=== PATIENT | female | born 1985 | race Caucasian/White ===

== ENCOUNTER 2025-02-11 14:56 | Outpatient (CLI) | payer OTHER, SELFPAY ==
--- OUTSIDE RECORDS SUMMARY | 2025-02-11 15:02 | XMS_ITS | Clinical Summary ---
Author Organization [facility] Address [address] [place] [address] Care Team Providers Care Monorail Hooker Name Role Phone Unavailable Primary Care Provider Unavailabl e Source Comments [facility],non-owned Affiliates and Associated Physician Practices is amultiple site organization consisting of ambulatory clinics and hospital sitesin [place], [place], [place] and [place]. This disclosure is being madepursuant to the Care Everywhere program and may not contain all information available regarding this patient. Last updated 18.[facility] [employer] Encounters Date Type Department Care Team Description 12/09/2024 Telephone [facility] [address] [place] [address] Bre Maurer Follow-up from Last 3 Months Social History Tobacco Use Types Packs/Day Years Used Date Smoking Tobacco: Never Assessed Comments Unknown Sex and Gender Information Value Date Recorded Sex Assigned at Not on file Legal Sex Female 8:28 AM CDT Gender Identity Not on file Sexual Orientation Not on file Plan of Treatment Health Maintenance Due Date Last Done Comments PAP SMEAR 1987 HIV SCREENING 2002 HEPATITIS C SCREENING 11/05/2005 DTAP/TDAP/TD VACCINES (1 - Tdap) 2006 HEPATITIS B VACCINE (1 of 3 - 19+ 3-dose series) 2006 COVID-19 VACCINE ( - 2023-2 5 season) 2024 DEPRESSION SCREENING 09/17/2024 INFLUENZA VACCINE (Season Ended) 2025 ZOSTER VACCINE (1 of 2) 2037 HIB VACCINE Aged Out No longer eligi ble based on patient's age to complete this topic HPV VACCINE Aged Out No longer eligi ble based on patient's age to complete this topic MENINGOCOCCAL (Group B) VACC INE SHARED DECISION-MAKING Aged Out No longer eligibl e based on patient's age to complete this topic MENINGOCOCCAL GROUPS A/C/Y/W VACCINE Aged Out No longer eligible b ased on patient's age to complete this topic PNEUMOCOCCAL VACCINE Aged Out No long er eligible based on patient's age to complete this topic [place] [address] [place] [id number]
--- OUTSIDE RECORDS SUMMARY | 2025-02-11 15:02 | XMS_ITS | Continuity of Care Document ---
Author Organization [facility] Address [address] [place] [address] Phone Care Team Providers Care Aerial Lineman Name Role Phone Blank OD, Geoff Unavailable Unavailable Advance Directives Directive Yes / No Effective Date File Name No Information Encounters Encounter Description Practice Location Reason(s) For Visit Diagnoses Date Provider Providers Copied on Encounter [facility] [place], [address], [place], [place], [id number], [place] tel:[phone] [facility] [place] No Information Sep-2 8-200 5 Blank OD Geoff. [address] [place] , [address], [place], [address], [place]. tel:[phone] Family History Family Member Type Diagnosis Age At Onset No Information Payers Payer name Insurance type Covered libertarian ID Authoriza tion(s) Medicaid [facility] [id number] Social History Type Description Quantity Date Captured [...]
--- OUTSIDE RECORDS SUMMARY | 2025-02-11 15:02 | XMS_ITS | Data Portability ---
Author Organization [place] [facility] [employer], Main Office Address [address] [place] [address] Care Team Providers Care Meringuer Name Role Phone ERICA WHITLOCK Primary Care Provider [phone] ERICA WHITLOCK Referring Provider [phone] VALENTIN HESS Orthopedic Surgeon SUSAN DENNIS Clinical Account Executive ELMA BAXTER Hydrodynamicist Assessment Encounter Date Assessment Date Assessment LastModified by Organization Details LastModified Time 10/06/2024 10/06/2024 HPI: 38 year old female presents today for evaluation of right ankle pain that has been ongoing since summer 2022 when she twisted her ankle. Reports pain as achy and currently rates it 7/10. Pain is aggravated with standing and walking for long periods. She has tried diclofenac with good relief. She did have a previous fracture of the right fifth and fourth metatarsal bone in 2022. No recent injury. Physical Exam: General: Normal appearance. No acute distress. BMI 56.2 Inspection: No evidence of swelling, erythema, bruising or deformity. Palpation: Nontender to palpation. ROM: Normal ROM. Gait: Normal gait. Motor: 5/5 strength. Sensation: Sensation intact. Imaging: Xray reviewed. 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 Assessment & Plan: PT for ankle arthritis Continue diclofenac as needed for pain. Follow Up: Discussed that if she fails PT the next step would be seeing a pharmaceutical worker for her ankle. She did mention knee pain and I told her we could see her back for knee pain. All questions were answered. Patient verbalized understanding of treatment plan [email or web address] Not available 10/07/2024 19:10:01 Plan of Treatment Reminders Order Date Submit Date Provider Last Modified By Organization Details Last Modified Time Details Appointments None recorded. Lab HbA1c (hemoglob in A1c), blood 2024 025 [facility], [address] [place], [address], 5 15:03:00 insulin, serum 2024 025 [facility] Out[facility], [address] [place], [address], 5 12:58:37 cortisol, serum or plasma 2024 025 [facility] Outpatient Lab, [address] [place], [address], 5 08:23:29 TSH + free T4, serum [email or web address] - Outpatient Lab, [address] [place], [address], 5 15:06:03 Referral podiatris t referral - eval for surgery RT ankle 2024 025 DORITA Castillo DPM, [address] [facility], [address], [place], [address], 5 04:17:26 physical therapist referral - Please contact pt to schedule apt for R ankle. Thanks 2024 025 [facility] [place], [address] [facility], [place], [address], 5 08:40:35 Procedures None recorded. Surgeries None recorded. Imaging XR, ankle, 3 or more view 2024 025 [facility] (Imaging), [address] [place], [address], 5 04:04:33 home sleep study - Please call patient to schedule. 2024 025 [email or web address] [facility], [address], [place], [address], 11:12:23 XR, ankle, 3 or more view 2024 025 [facility] [place], [address], [place], [address], 16:58:55 Medication Orders diclofena c 1 % topical gel 2024 025 [id number], [address], [place], [place], [id number], 12:06:13 Diflucan 150 mg tablet 2024 025 [id number], [address], [place], [place], [id number], 12:06:13 Patient TargetsNo targets recorded. Patient Instructions Encounter Date Encounter Id Patient Instructions Last Modified By Organization Details Last Modified Time 10/21/2024 [id number] Follow up in 1 month Obtain labs Tests: Complete sleep study Referral: Recommend: Tetanus vaccine [email or web address] Not available 10/21/2024 14:58:31 Reason for Referral Physical Therapist Referral for Pain of right ankle joint R ankle-arthritis Please contact pt to schedule apt for R ankle. Thanks Referring Physician: Brandi Lopez, Orthopedic Surgery, Encounter Date: 10/06/2024 Clinical Account Executive Referral for Pain in right foot eval for surgery RT ankle Referring Physician: Susan Dennis, Podiatry, Encounter Date: 11/26/2024 Results Created Date Observation Date Name Description Value Unit Range Abnormal Flag Note LastModifiedBy Organization Detail LastModifiedTime 10/06/19 25 XR, ankle , 3 or more view No observ ation record ed. opal [facility] [place] [address], [place], [address], 10/07/2024 16:58:53 Result Notes None recorded. Problems Name Problem SNOMED Code Status Onset Date Resolution Date Notes Provider Name and Address Organization Details Recorded Time Hoarse 58900605 Active 2022 Not Available [facility] 3 07:12:04 Pain of bilateral knee joints 53402770004 4104 Active 2022 Not Available [facility] 3 07:12:04 Menorrhag ia 841690294 Active 2022 Not Available [facility] 3 07:12:03 History of methamphe tamine abuse 43810213925 840264 Active 2022 Not Available [facility] 3 07:12:03 Asthma 049450799 Active 2022 Erica Whitlock APRN [address], [place] [address], [place], [address] , [employer] 4 12:14:27 Iron deficienc y 77171742 Active 2022 Erica Whitlock APRN [address], [place] [address], [place], [address] , [employer] 4 12:14:32 Vitamin D deficienc y 49538581 Active 2022 Erica Whitlock APRN [address], [place] [address], [place], [address] , [employer] 4 12:15:34 Leukocyto sis 189132337 Active 2022 Erica Whitlock APRN [address], [facility], [place], [address] , [employer] 5 09:35:46 Pain of left knee joint 38252325350 4107 Active 2022 Not Available [facility] 3 07:12:03 Morbid obesity 678093083 Active 2022 Erica Whitlock APRN [address], [address], [place], [address] , [employer] 5 09:35:35 Bilateral osteoarth ritis of knees 87927857953 9107 Active 2022 Not Available [facility] 3 07:12:03 Iron deficienc y anemia 24958529 Active 2022 Erica Whitlock APRN [address], [address], [place], [address] , [employer] 4 08:06:43 Obesity 226458312 Completed 202210/21/2024 Erica Whitlock APRN [address], [address], [place], [address] , [employer] 5 09:35:51 Repetitiv e self-exco riation 899727791 Active 2022 Erica Whitlock APRN [address], [address], [place], [address] , [employer] 4 08:06:57 Nicotine dependenc e 89154762 Active 2022 Erica Whitlock APRN [address], [address], [place], [address] , [employer] 4 12:14:37 Pain of right ankle joint 03136088799 156120 Active 2022 Not Available [facility] 3 07:12:03 Closed fracture of fifth metatarsa l bone 48781560 Active 2022 Not Available [facility] 3 07:12:04 Closed fracture of fourth metatarsa l bone 44490141 Active 2022 Not Available [facility] 3 07:12:03 Closed fracture of third metatarsa l bone of right foot 38767450076 674875 Active 2022 Not Available [facility] 3 07:12:03 Pain in left foot 80741325860 9107 Active 2023 Shelton Castillo DPM [address], [address], [place], [address] , [employer] [facility] [employer] [facility] [employer] [facility] 4 15:43:32 Contusion of toe 08254920 Active 2023 Shelton Castillo DPM [address], [address], [place], [address] , [place] [facility] 4 15:43:43 Numbness of foot 874379925 Active 2023 Erica Whitlock APRN [address], [address], [place], [address] , [employer] [facility] 4 12:27:32 Gastroeso phageal reflux disease without esophagit is 524893733 Active 2023 Erica Whitlock APRN [address], [address], [place], [address] , [facility] - [facility] [employer] [facility] 4 08:06:37 Bilateral ankle joint pain 74555457322 342530 Active 2023 Kelly Daniels CNA null, [place] [facility] [employer] [facility] 4 12:26:07 Closed fracture of fifth metatarsa l bone of left foot 12256138061 931335 Active 2023 BORA Bradley [address], [address], [place], [address] , [facility] 4 13:06:19 Right Achilles tendiniti s 40386705947 9102 Active 2023 BORA Bradley [address], [address], [place], [address] , [facility] - [facility] 4 15:46:16 Osteochon dral defect of talus 650344412 Active 2023 Susan Dennis DPM [address], [address], [place], [address] , [place] [facility] 4 09:18:02 Arthritis 4622539 Active 2023 Erica Whitlock APRN [address], [address], [place], [address] , [place] [facility] [employer] [facility] [employer] 4 08:06:33 Prediabet es 535287052 Active 2023 Erica Whitlock APRN [address], [address], [place], [address] , [place] [facility] [employer] [facility] [employer] 4 14:46:07 Arthritis of right ankle 97561714798 30682 Active 2024 Brandi Lopez PA-C [address], [address], [place], [address] , [place] [facility] [employer] [facility] [employer] 5 16:59:19 Abnormal weight gain 804147038 Active 2024 Erica Whitlock APRN [address], [address], [place], [address] , [employer] 5 14:52:59 Snoring 30725574 Active 2024 Erica Whitlock APRN [address], [address], [place], [address] , [employer] [facility] [facility] 5 14:56:04 Sleep apnea 63859893 Active 2024 Erica Whitlock APRN [address], [address], [place], [address] , [employer] [facility] [employer] 5 14:58:43 Insulin resistanc e 786890243 Active 2024 Erica Whitlock APRN [address], [address], [place], [address] , [facility] - [facility] [employer] [facility] [employer] 5 14:01:50 Onychomyc osis 801722826 Active 2024 MIMI Xiong, [place] [facility] 5 15:19:01 Pain in right foot 56639614127 9107 Active 2024 Susan Dennis DPM [address], [address], [place], [address] , [facility] [employer] [facility] [employer] 09:08:19 Bone spur of right ankle 42165261585 9109 Active 2024 MIMI Xiong [employer] [facility] [employer] [facility] 15:39:34 Problem Notes None recorded. Procedures Surgical History Date Name Laterality Status Provider Name and Address Organization Details Recorded Time 11/12/19 25 Corticosteroid Injection completed Susan Dennis DPM [address], [employer] [address], [place], [address], [employer] 11/13/2024 09:08:13 07/07/20 24 Cortisone Injection Ankle-Right completed Susan Dennis DPM [address], [employer], [place], [address], [employer] 07/08/2024 09:18:31 04/03/20 23 Ortho - Cortisone Injection completed Arnulfo Ramsey MD [address], [place], [place], [address], [employer] 04/03/2023 10:40:17 02/07/20 23 Ortho - Cortisone Injection completed Arnulfo Ramsey MD [address], [employer] [address], [place], [address], [employer] [facility] [employer] 02/06/2023 10:47:09 Adenoid Surgery completed MIMI Allen [employer] [facility] [employer] 02/06/2023 10:20:45 loop electrosurgical excision procedure completed Karie Lyles [employer] [facility] [employer] 05/07/2023 16:21:09 Imaging Results None recorded. Procedure Notes None recorded. Medical Equipment None Reported. Allergies No known drug allergies Medications Name Sig Start Date Stop Date Status Note LastModified by Organization Details LastModified Time prednisone 10 mg tablet 10/02 completed Not Available Not Available Not Available fluconazole 150 mg tablet TAKE 1 TABLET BY MOUTH ONCE WEEKLY active Not Available Not Available No t Available Nystop 100,000 unit/gram topical powder APPLY EXTERNALL Y TO THE AFFECTED AREA TWICE DAILY 01/09 completed Not Available Not Available Not Available meloxicam 15 mg tablet TAKE 1 TABLET BY MOUTH EVERY DAY NEEDED 05/07 completed Not Available Not Available Not Available sulfamethox azole 800 mg-trimetho prim 160 mg tablet TAKE 1 TABLET BY MOUTH EVERY 12 HOURS 05/07 completed Not Available Not Available Not Available tramadol 50 mg tablet TAKE 1 TABLET BY MOUTH EVERY 8 HOURS NEEDED 10/06 completed Not Available Not Available Not Available prednisone 10 mg tablets in a dose pack Take 1 tab by mouth, 3 times a day for 3 daysTake 1 tab by mouth 2 times a day for 2 daysTake 1 tab by mouth once a day for 1 day 06/28 completed Not Available Not Available Not Available Kenalog 10 mg/mL suspension for injection Take 40 mg by injection route. 05/07 completed [facility]: 0003- 0494- 20 Not Available Not Available Not Available ferrous sulfate 325 mg (65 mg iron) tablet Take 1 tablet every day by oral route. 03/10 completed Not Available Not Available Not Available omeprazole 20 mg capsule,del ayed release TAKE ONE CAPSULE BY MOUTH DAILY AT DINNER active Not Available Not Available No t Available diclofenac sodium 75 mg tablet,michele yed release TAKE 1 TABLET BY MOUTH TWICE DAILY active Not Available Not Available No t Available ergocalcife rol (vitamin D2) 1,250 mcg (50,000 unit) capsule TAKE 1 CAPSULE BY MOUTH EVERY WEEK active Not Available Not Available No t Available methylpredn isolone 4 mg tablets in a dose pack FOLLOW PACKAGE DIRECTION S 01/25 completed Not Available Not Available Not Available albuterol sulfate HFA 90 mcg/actuati on aerosol inhaler INHALE 2 PUFFS BY MOUTH EVERY 4 HOURS NEEDED active Not Available Not Available No t Available metformin ER 500 mg tablet,exte nded release 24 hr TAKE 1 TABLET BY MOUTH EVERY DAY DIRECTED active Not Available Not Available No t Available amoxicillin 875 mg-potassiu m clavulanate 125 mg tablet TAKE 1 TABLET BY MOUTH TWICE DAILY 01/25 completed Not Available Not Available Not Available omeprazole 20 mg tablet,michele yed release Take 1 tablet every day by oral route. 03/10 completed Not Available Not Available Not Available diclofenac 1 % topical gel APPLY 2 GRAMS TO THE AFFECTED AREA(S) BY TOPICAL ROUTE 4 TIMES PER DAY 2024 active Not Available Not Available Not Avai lable ropivacaine (PF) 5 mg/mL (0.5 %) injection solution Take 40 mg by injection route. 05/07 completed [facility] [phone] -064- 01 Not Available Not Available Not Available Vitals Date Recorded Body height Body mass index (BMI) Body weight Provider Name and Address Organization Details Last Updated DateTime 10/06/2024 157.48 cm 56.2 kg/m2 790507.86 g Raisa Mccarty [facility] [employer] [facility] [employer] 10/06/2024 12:38:05 Date Recorded Body height Body mass index (BMI) Body weight Body temperature Heart rate Oxygen saturation Oxygen saturation in Arterial blood by Pulse oximetry Systolic blood pressure Diastolic blood pressure Provider Name and Address Organization Details Last Updated DateTime 157.48 cm 61.8 kg/m2 590798. 22 g 97.4 [degF] 89 /min 97 % 97 % 126 mm[Hg] 78 mm[Hg] Bri Song MA [facility] [employer] [facility] 14:45:04 Date Recorded Body height Body mass index (BMI) Body weight Oxygen saturation Oxygen saturation in Arterial blood by Pulse oximetry Body temperature Heart rate Provider Name and Address Organization Details Last Updated DateTime 157.48 cm 61.5 kg/m2 263146. 04 g 98 % 98 % 97.9 [degF] 86 /min Jesse Carroll [facility] [employer] [facility] [employer] 14:59:06 Date Recorded Body height Provider Name an d Address Organization Details Last Updated DateTime 11/24/2024 157.48 cm Jesse Carroll Oeflia [employer] [facility] [employer] 11/24/2024 16:11:25 Date Recorded Body height Body mass index (BMI) Body weight Oxygen saturation Oxygen saturation in Arterial blood by Pulse oximetry Body temperature Heart rate Provider Name and Address Organization Details Last Updated DateTime 157.48 cm 61.5 kg/m2 609514. 04 g 96 % 96 % 98.2 [degF] 80 /min Jesse Carroll Ofelia [employer] [facility] [employer] 15:26:32 Social History Question Answer Notes LastModified by Organization Details LastModified Time Tobacco Smoking Status Current Every Day Smoker Connie Collier, KASEY hines, [place] [facility] [place] [employer] 01/25/2023 11:07:44 If You Are , What Was Your Level Of Alcohol Consumption Prior To ? None Information not available 05/07/2023 What Is Your Level Of Caffeine Consumption? Heavy 3 Redbulls Daily Information not available 01/25/2023 In The 14 Days Before Symptom Onset, Have You Had Close Contact With A Laboratory-conf irmed COVID-19 While That Case Was Ill? No Information not available 01/25/2023 In The 14 Days Before Symptom Onset, Have You Had Close Contact With A Person Who Is Under Investigation For COVID-19 While That Person Was Ill? No Information not available 01/25/2023 What Type Of Diet Are You Following? REGULAR High Protein Information not available 10/21/2024 What Is The Highest Grade Or Level Of School You Have Completed Or The Highest Degree You Have Received? [id number] Information not available 01/25/2023 Have There Been Any Changes To Your Family Or Social Situation? No Information not available 01/25/2023 What Is The Fluoride Status Of Your Home? Unknown Information not available 01/25/2023 Do You Use Insect Repellent Routinely? Yes Information not available 01/25/2023 Where Do You Live? SingleLevelHouse Information not available 01/25/2023 Are You Following A Low Salt Diet? No Information not available 10/21/2024 What Was The Date Of Your Most Recent Tobacco Screening? 10/21/2024 Information not available 10/21/2024 Do You Have Any Pets? Yes Information not available 01/25/2023 What Is Your Relationship Status? Single Information not available 01/25/2023 Do You Use Your Seat Belt Or Car Seat Routinely? Yes Information not available 01/10/2024 Do You Have Smoke And Carbon Monoxide Detectors In Your Home? Yes Information not available 01/25/2023 At What Age Did You Start Smoking Tobacco? 19 Information not available 05/07/2023 Are You Passively Exposed To Smoke? Yes Information not available 01/25/2023 Are There Any Smokers In Your House? Yes Information not available 01/25/2023 How Much Tobacco Do You Smoke? 0.5 PPD Information not available 01/25/2023 Do You Use Sunscreen Routinely? No Information not available 01/25/2023 Has Tobacco Cessation Counseling Been Provided? No Information not available 05/07/2023 Have You Recently Traveled Abroad? No Information not available 01/25/2023 Have You Used IV Drugs? No Information not available 05/07/2023 Do You Have Any Dietary Restrictions? Yes Lactose Intolerant Information not available 10/21/2024 Sex: Unknown Functional Status Question Answer Note LastModified by Organizat ion Details LastModified Time Do you use any illicit or recreational drugs? Yes cannabis. former use of methphetamines Information not available 05/07/2023 Do you or have you ever used any other forms of tobacco or nicotine? No Information not available 01/25/2023 What is your level of alcohol consumption? None Information not available 05/07/2023 Are you currently employed? Yes Information not available 01/25/2023 What is your exercise level? Moderate Information not available 01/25/2023 Mental Status Question Answer Note LastModified by Organization D etails LastModified Time Do you feel stressed (tense, restless, nervous, or anxious, or unable to sleep at night)? [id number] Information not available 01/10/2024 Family History Relationship Description Onset Age of this Age Resolved Age Notes LastModified by Organization Details LastModified Time Father Hypertensive disorder Not available 2022 11:06:37 Father Diabetes mellitus Not available 2022 11:06:45 Father Arthritis Not availa ble 10/21/2024 14:37:42 Father Heart disease Not available 08/21/ 2023 16:20:17 Mother Malignant tumor of breast [email or web address] Not available 10/21 14:37:42 Mother Arthritis [email or web address] Not availa ble 10/21/2024 14:37:42 Brother Diabetes mellitus [email or web address] Not available 2022 16:19:25 Medical History Condition Response ARTHRITIS Y HEADACHES/MIGRAINES Y ANXIETY DISORDER Y ANEMIA/BLOOD DISORDER Y Gynecological History Statement/Question Response How many live births 0 Date of Last Pap Current Control Method Abstinence Date of LMP 10/06/2024 Sexually Active? N Obstetrics History GPAL:G 0 P 0 0 0 0 Type Value Multiple Births 0 Full Term 0 Induced 0 Spontaneous 0 Premature 0 Living 0 Ectopics 0 Total 0 Past Encounters Encounter ID Performer Location Encounter Start Date Encounter Closed Date Diagnosis/Indication Diagnosis SNOMED-CT Code Diagnosis ICD10 Code Diagnosis Note [id number] Lindsay bradford MD [facility] [place] [address] [facility] [address] [place] [address] 01/25/2023 10:55:28 01/25/2023 11:41:40 Hoarse 69393809 R49.0 Get appointmen t with ENT ER precaution s if any difficulty swallowing or difficulty breathing prior to appointmen t Pain of bi lateral knee joints 6890677276 84970 M25.561 M25.562 Get x-ray Get appointmen t with Ortho Menorrhagia 977356662 N9 2.0 Check labs Get appointmen t with rn obgyn Screening for disorder 568680927 Z13.9 History of methamphetamine abuse 6976199906 8022918 F15.21 Family his tory of breast cancer 358015009 Z80.3 We discussed starting early with baseline screenings due to her family history, she agrees Asthma 140956571 J45.90 9 On p.r.n. albuterol [id number] Arnulfo Ramsey MD [facility] [address] [place] [address] 02/06/2023 10:00:22 02/06/2023 10:46:45 Pain of bilateral knee joints 4951203282 65883 M25.561 M25.562 Morbid obesity 502371821 E66.01 Bilateral osteoarthritis of knees 2570269321 64568 M17.0 [id number] Lindsay bradford MD [facility] [address] [facility] [address] [place] [address] 02/26/2023 11:47:17 02/26/2023 12:17:18 Hoarse 84794964 R49.0 now following ENT- Dr. Nice, had laryngosco pyhe feels this is due to acid reflux, has her on omeprazole Pain of bi lateral knee joints 2521531872 56353 M25.561 M25.562 following ortho- Dr. 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 albuterol Vitamin D deficiency 347 32000 E55.9 On supplement Iron defic iency anemia 43284360 D50.9 On supplement Leukocytosis 112735210 D 72.829 Repeat CBC Adult heal th examination 462788062 Z00.01 Depression screening 171 706960 Z13.31 Obesity 282336686 E66.9 recommend healthy, well balanced mealsfocus on lean meats, fresh vegetables , fresh fruits, whole grainsredu ce fast/proce ssed foods or eating out to no more than 1-2 times per weekaim to get 30 min of exercise most days of the week- walking is a great choicealso recommend resistance training 2-3 times per week Repetitive self-excoriation 067146008 F42.4 recommend she wear long sleeves, keep nails cut shortfirst aid discussed- wash with gentle soap and apply TAB ointmentca ll if any s/s infection Nicotine dependence 5629 4008 F17.200 1 min spent with patient discussing risks, cessation options. Patient encouraged to quit. [id number] Arnulfo Ramsey MD [facility] [address] [place] [address] 03/06/2023 10:00:01 03/06/2023 11:18:14 Pain of bilateral knee joints 1972361627 93779 M25.561 M25.562 Bilateral osteoarthritis of knees 4312634939 16376 M17.0 Morbid obesity 214753208 E66.01 [id number] Arnulfo Ramsey MD [facility] [place] [address] [place], [place] [address] 04/03/2023 10:12:15 04/03/2023 10:51:08 Bilateral osteoarthritis of knees [id number] 77083 M17.0 Morbid obesity 528147782 E66.01 [id number] Shelton Castillo DPM [facility] Pod[facility] [place] [address] [place] [address] 05/07/2023 16:04:09 05/14/2023 11:52:07 Pain of right ankle joint 3963989327 6504698 M25.571 x-rays negative for acute injury- residual posttrauma tic findings with small ossicles of the medial and lateral ankle with intact ankle mortise Closed fra cture of fifth metatarsal bone 75041276 S92.354A dispense postop shoeminima l weight-lora ringrice therapyno strenuous activities [facility] for repeat x-ray Closed fra cture of fourth metatarsal bone 96691050 S92.344A as above Closed fra cture of third metatarsal bone of right foot 8456197822 0035434 S92.334A as above [id number] Lindsay bradford MD [facility] Internal Med [facility] [place] [address] [facility], [facility] [place] 15 [place] [address] 06/04/2023 12:00:14 06/04/2023 12:23:54 Hoarse [id number] R49.0 now following ENT- Dr. Nice, had laryngosco pyhe feels this is due to acid reflux, has her on omeprazole Pain of bi lateral knee joints 7177044180 78092 M25.561 M25.562 following ortho- Dr. Ramsey Menorrhagia 246238134 N9 2.0 now following [employer]- Dr. Ayala iron supplement History of methamphetamine abuse 8214616329 1953899 F15.21 continues to remain sober per her reportUDS negative for methamphet amines on 01/2023 Family his tory of breast cancer 890675981 Z80.3 We discussed starting early with baseline screenings due to her family historyhas mammogram order- encouraged her to schedule Asthma 198784191 J45.90 9 On p.r.n. albuterol Vitamin D deficiency 347 32753 E55.9 On supplement Iron defic iency anemia 52121296 D50.9 On supplement Leukocytosis 406676444 D 72.829 Repeat CBC Obesity 958150748 E66.9 recommend healthy, well balanced mealsfocus on lean meats, fresh vegetables , fresh fruits, whole grainsredu ce fast/proce ssed foods or eating out to no more than 1-2 times per weekaim to get 30 min of exercise most days of the week- walking is a great choicealso recommend resistance training 2-3 times per week Repetitive self-excoriation 091273409 F42.4 recommend she wear long sleeves, keep nails cut shortfirst aid discussed- wash with gentle soap and apply TAB ointmentca ll if any s/s infection Nicotine dependence 5629 4008 F17.200 1 min spent with patient discussing risks, cessation options. Patient encouraged to quit. Pain of ri ght ankle joint 5436742838 1074323 M25.571 following podiatry- Dr. Franny barnett missed her last apptencour aged her to call and reschedule [id number] Shelton Castillo DPM [facility] [place] [address] [place] [address] 07/23/2023 14:49:40 07/23/2023 15:40:00 Closed fracture of fifth metatarsal bone 30158772 S92.354A Not wearing postop shoeminima l weight-lora ringrice therapyno strenuous activities [facility] for repeat x-ray Closed fra cture of fourth metatarsal bone 23236730 S92.344A as above Closed fra cture of third metatarsal bone of right foot 2846552558 6632091 S92.334A as above [id number] Shelton Castillo DPM [facility] Podiatry [place] [address] [facility] [address] [place] [address] 12/11/2023 15:27:39 12/11/2023 16:26:34 Pain in left foot 3216850999 43204 M79.672 X-rays personally reviewed negative for acute injuryrice therapyrec ommend supportive shoe gear such as new balancefol low-up as needed Contusion of toe 6747847 0 S90.122A as above [id number] Lindsay bradford MD [facility] Internal Med [place] [address] [facility], [place] [address] [place] [address] 01/10/2024 12:10:36 01/10/2024 12:44:52 Asthma 688067955 J45.909 Iron deficiency 52226191 E61.1 Vitamin D deficiency 347 52930 E55.9 Pain in left foot 388382 5088 43059 M79.672 Gastroesop hageal reflux disease without esophagitis 346475258 K21.9 [id number] Obed Nguyen MD [facility] [place] [address] [place] [address] 03/10/2024 12:00:09 03/10/2024 15:42:18 Pain in left foot 4816538843 57218 M79.672 Bilateral ankle joint pain 6857792533 6844730 M25.571 M25.572 Closed fra cture of fifth metatarsal bone of left foot 4336060540 2287257 S92.352D [id number] Obed Nguyen MD [facility] [place] [address] [place] [address] 04/08/2024 14:46:49 04/08/2024 15:57:54 Closed fracture of fifth metatarsal bone of left foot 0990609848 2840898 S92.352D Bilateral ankle joint pain 1172532249 4218765 M25.571 M25.572 Pain in left foot 979513 5782 93486 M79.672 Right Achi lles tendinitis 0730864579 68247 M76.61 [id number] Lindsay bradford MD [facility] Internal Med [facility] [place] [address] [facility], [address] [address] 07/10/2024 14:05:55 07/10/2024 14:55:33 Hyperlipidemia screening 289150084 Z13.220 Screening for disorder 983642901 Z13.9 Hepatitis C screening 41 7176212 Z11.59 Asthma 486576926 J45.90 9 Obesity 415599355 E66.9 [id number] [facility] [address] [address] 07/07/2024 15:12:23 07/08/2024 09:51:53 Osteochondral defect of talus 050663579 M21.6X9 Arthritis 0972186 M19.90 [id number] [facility] [address] [place] [address] 08/26/2024 15:16:57 08/26/2024 15:58:55 Pain of right ankle joint 8131169957 0700680 M25.880 [id number] Obed Nguyen MD [facility] [address] 10/06/2024 12:06:06 10/06/2024 13:06:20 Pain of right ankle joint 9701129788 3612751 M25.571 Arthritis of right ankle 1927845495 577430 M13.693 [id number] Lindsay bradford MD [facility] Internal Med [facility] [place] [address] [address] 10/21/2024 14:37:01 10/21/2024 15:06:14 Abnormal weight gain 570395596 R63.5 Sleep apnea 49600668 G47 .30 [id number] Susan [facility] [address] [address] 11/12/2024 14:50:20 11/13/2024 10:51:19 Onychomycosis 694763062 B35.1 Pain of ri ght ankle joint 9212765588 4010359 M25.571 Pain in right foot 73585 48193 21479 M79.671 Osteochond ral defect of talus 532266657 M21.6X9 [id number] Susan Dennis DPM [facility] [place] [address] [address] 11/24/2024 16:02:28 12/10/2024 04:08:35 Osteochondral defect of talus 294725646 M21.6X9 [id number] Susan Dennis DPM [facility] Pod[facility] [address] [address] 11/26/2024 15:18:12 12/08/2024 10:58:18 Bone spur of right ankle 7277614381 56948 M25.771 Pain in right foot 40260 54761 27386 M79.671 Arthritis of right ankle 3221792186 111338 M13.871 Health Concerns Section Related Observation LastModified by Organization Detai ls LastModified Time None Recorded Concern Status LastModified by Organization Details LastModified Time None Recorded Advance Directives Directive None Recorded Payers Encounter Date Sequence Insurance Name Policy Number Policy Yo Covered Member ID Yo Member ID Guarantor Name 10/06/2024 1 [employer] (MEDICAID HM) [id number] Mirlande Mathenia [id number] Mirlande Mathenia 10/21/2024 1 [employer] [place] (MEDICAID HMO) [id number] Mirlande Mathenia [id number] Mirlande Mathenia 11/12/2024 1 [employer] [place] (MEDICAID HMO) [id number] Mirlande Mathenia [id number] Mirlande Mathenia 11/24/2024 1 [employer] [place] (MEDICAID HMO) [id number] 0003 Mirlande Mathenia [id number] Mirlnade Mathenia 11/26/2024 1 [employer] (MEDICAID HMO) [id number] 0003 Mirlande Mathenia [id number] Mirlande Mathenia Notes Date Note Type Note Provider Name and Address Organization Details Recorded Time 10/21/2024 text/html Mirlande presents today for 4 month follow up. 07/10/2024andreasroddy presents today for 6 month follow up. She states that she is seeing podiatry for her feet as she has a fracture of her left metatarsal and right heel spir. She is very upset and tearful due to her weight gain. She has gained 20 pounds since her last visit. In discussion, she is walking about 5,000 steps per day and eating less than 900 calories. 01/10/2024andreasroddy presents today to establish care. She states that she has not been to a PCP in a long while. She states that she is having foot pain and is in need of podiatry. She states that she needs labs and medication refills. Erica Whitlock APRN [address], [place], [address], [employer] 10/22/2024 11:03:19 11/12/2024 text/html Pt c/o painful ankle, Rt, previously injected, rendered great relief; pt requests another injection this date. Susan Dennis DPM [address], [employer] [address], [place], [address], [employer] 11/13/2024 09:08:38 11/24/2024 text/html Pt RTC for cont c/o painful arthritic ankle, Lt Susan Dennis DPM [address], [place], [address], [employer] 11/26/2024 08:50:31 11/26/2024 text/html Evaluated xrays this date. Osteophyte Rt ankle, painful. Susan Dennis DPM [address], [place], [address], [employer] 11/27/2024 08:39:48 OBGyn Episode No OBEpisode recorded.
[2025-02-11 16:06] LABS: Beta HCG Quantitative < 2.39 mIU/ML
== END 2025-02-11 14:57 | disposition home or self-care (01) ==
LOC: ANHLAB 14:58
PROVIDERS: PCP Family Medicine; Visit Provider Obstetrics & Gynecology
DX: N92.0 Excessive and frequent menstruation with regular cycle (principal)
CPT/HCPCS: 36415; 84702

== ENCOUNTER 2025-07-07 16:01 | Outpatient (CLI) | payer OTHER, SELFPAY ==
--- OUTSIDE RECORDS SUMMARY | 2005-06-14 08:45 | XMS_ITS | Continuity of Care Document ---
Author Organization [facility] Address [address] [place] [address] Phone Care Team Providers Care Assistive Technology Trainer Name Role Phone Blank OD, Geoff Unavailable Unavailable Advance Directives Directive Yes / No Effective Date File Name No Information Encounters Encounter Description Practice Location Reason(s) For Visit Diagnoses Date Provider Providers Copied on Encounter [facility], [address], [place], [place], [id number], [place] tel:[phone] [facility] [place] No Information Sep-2 8-200 5 Blank OD Geoff. [address] [place] , [address], [place], [address], [place]. tel:[phone] Family History Family Member Type Diagnosis Age At Onset No Information Payers Payer name Insurance type Covered democrat ID Authoriza tion(s) Medicaid [facility] [id number] Social History Type Description Quantity Date Captured Comments Sex Female Smoking Status No Information Chief Complaint And Reason For Visit No Information Reason For Referral Reason For Referral No Information History Of Present Illness Encounter Date Complaint History Of Prese nt Illness No Information Functional Status Date Functional Assessmen t No Information Instructions Date Instruction Additional Infor mation No Information Assessments Type Assessment Date No Information Patient Care Teams Name Effective Dates (start - stop) Status Members No Information
--- NOTE | ~2025-07-07 | MR_ITS ---
EXAMINATION: MR ankle RT wo con DATE: 07/07/2025 16:44 INDICATION: Right ankle arthritis TECHNIQUE: Magnetic resonance imaging (MRI) of the right ankle was performed without intravenous contrast. Sequences included sagittal, coronal, and axial proton-density weighted fast spin echo without and with fat saturation. COMPARISON: None. FINDINGS: Medial ankle ligaments: There is loss of the normally well-defined striated pattern of the deep deltoid ligament consistent with likely scarring related to chronic sprain. There is heterotopic ossification at the tibial origin of the mildly thickened superficial deltoid ligament also consistent with sequela of chronic sprain. The spring ligament complex is normal. Lateral ankle ligaments: The anterior and posterior inferior tibiofibular ligaments are normal. There is heterotopic ossification along the anterior talofibular ligament consistent with sequela of chronic sprain. The calcaneofibular and posterior talofibular ligaments are normal. Tendons: Achilles tendon is normal. Small amount of fluid extending along the normal peroneus longus and brevis tendons consistent with mild tenosynovitis. The tibialis anterior and extensor hallucis longus and extensor digitorum longus tendons are normal. The tibialis posterior, flexor digitorum longus and flexor hallucis longus tendons are normal. Plantar fascia: Plantar aponeurosis is normal. 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 Mild osteoarthritis at the joints in the mid and hindfoot. No fracture or pathologic marrow replacing process. Tiny focus of susceptibility artifact centered along the skin surface lateral to the base of the fifth metatarsal. Fluid: Physiologic amount region of fluid at the joint spaces. Mild likely reactive synovitis at the anterior and posterior recess of the tibiotalar joint. There is diffuse subcutaneous edema about the visualized lower leg, ankle and over the dorsum of the visualized foot. IMPRESSION: 1. 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 2. Stigmata of chronic medial and lateral ankle sprains. 3. Mild peroneal tenosynovitis with normal appearing tendons. Reviewed, dictated and finalized at location A.
--- OUTSIDE RECORDS SUMMARY | 2025-07-07 19:42 | XMS_ITS | Clinical Summary ---
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 This disclosure is being madepursuant to the Care Everywhere program and may not contain all information available regarding this patient. Last updated 18.[facility] Social History Tobacco Use Types Packs/Day Years Used Date Smoking Tobacco: Never Assessed Comments Unknown Sex and Gender Information Value Date Recorded Sex Assigned at Not on file Legal Sex Female 8:28 AM CDT Gender Identity Not on file Sexual Orientation Not on file Plan of Treatment Health Maintenance Due Date Last Done Comments HIV SCREENING 2002 HEPATITIS C SCREENING 11/05/2005 DTAP/TDAP/TD VACCINES (1 - Tdap) 2006 HEPATITIS B VACCINE (1 of 3 - 19+ 3-dose series) 2006 PAP SMEAR 2008 HPV VACCINE (1 - 3-dose SCDM series) 2014 DEPRESSION SCREENING 09/17/2024 COVID-19 VACCINE ( - 2023-2 5 season) 2025 INFLUENZA VACCINE (#1) 2025 ZOSTER VACCINE (1 of 2) 2037 [...] patient's age to complete this topic Insurance [facility]
== END 2025-07-07 16:02 | disposition home or self-care (01) ==
LOC: ANHIMG 16:03
PROVIDERS: PCP Family Medicine; Visit Provider Podiatrist Foot & Ankle Surgery
DX: M19.071 Primary osteoarthritis, right ankle and foot (principal); S93.491A Sprain of other ligament of right ankle, initial encounter; X58.XXXA Exposure to other specified factors, initial encounter; M65.871 Other synovitis and tenosynovitis, right ankle and foot
CPT/HCPCS: 73721